=== PATIENT | male | born 1940 | race Caucasian/White ===

== ENCOUNTER → 2021-07-06 08:28 | Outpatient (BNVA) | payer OTHER, SELFPAY | PROVIDERS: Visit Provider Thoracic Surgery (Cardiothoracic Vascular Surgery) | DX: L89.302 Pressure ulcer of unspecified buttock, stage 2 (principal) | CPT/HCPCS: 97597; 99203; 99213 ==

== ENCOUNTER → 2021-07-13 09:02 | Outpatient (BNVA) | payer OTHER, SELFPAY | PROVIDERS: Visit Provider Thoracic Surgery (Cardiothoracic Vascular Surgery) | DX: Z09 Encounter for follow-up examination after completed treatment for conditions other than malignant neoplasm (principal) | CPT/HCPCS: 99212 ==

== ENCOUNTER 2021-08-16 20:00 | Outpatient (CLI) | payer OTHER, SELFPAY | END 2021-08-16 20:01 | disposition home or self-care (01) | LOC: SLEEP 08-17 08:34 | PROVIDERS: Visit Provider Family Medicine | DX: G47.33 Obstructive sleep apnea (adult) (pediatric) (principal) | CPT/HCPCS: 95811 ==

== ENCOUNTER 2022-01-17 11:54 | Outpatient (CLI) | payer MEDICARE, SELFPAY ==
[2022-01-17 13:37] LABS: PSA Screen - Urology 6.31 ng/mL (0-4)
== END 2022-01-17 11:55 | disposition home or self-care (01) ==
LOC: RAD 11:58
PROVIDERS: PCP Family Medicine; Visit Provider Urology
DX: Z12.5 Encounter for screening for malignant neoplasm of prostate (principal)
CPT/HCPCS: G0103

== ENCOUNTER → 2022-01-24 13:27 | Outpatient (BNVA) | payer MEDICARE, SELFPAY | PROVIDERS: PCP Family Medicine; Visit Provider Urology | DX: N40.1 Benign prostatic hyperplasia with lower urinary tract symptoms (principal); R97.20 Elevated prostate specific antigen [PSA]; I10 Essential (primary) hypertension; R35.89 Other polyuria | CPT/HCPCS: 51741; 51798; 52000; 99203 ==

== ENCOUNTER 2022-07-06 07:33 | Outpatient (CLI) | payer MEDICARE, SELFPAY ==
--- NOTE | 2022-07-06 08:00 | USCV_ITS ---
LewisIan robledo Age: 81 Gender: M : 1940 Exam Date: 07/06/2022 07:54 Ordering Phys: Isiah Perry MD ([email or web address]) Technologist: Ruslan Candelario Exam Location: [facility] – [place] Indication: CP, SOB BP: 160 / 90 HR: 89 Rhythm: Atrial fibrillation Technical Quality: Adequate MEASUREMENTS (Male / Female) Normal Values 2D ECHO LVOT Diameter 2.0 cm LV Ejection Fraction MOD 2C 51.8 % LV Ejection Fraction 2C AL 52.1 % LA Diameter 5.5 cm LA Width 5.0 cm LA Height 6.6 cm RA Width 4.7 cm RA Height 6.3 cm Aorta at Sinotubular Diameter 3.6 cm IVC Diameter 2.0 cm M-MODE Aortic Annulus Diameter 3.6 cm LA Ao Ratio MM 1.6 MV E Point Septal Separation 1.3 cm DOPPLER AV Peak Velocity 101.3 cm/s LVOT Peak Velocity 63.0 cm/s AV Area Cont Eq vti 1.9 cm squared AV Area Cont Eq pk 2.0 cm squared MV Peak Velocity 84.0 cm/s MV Area PHT 5.8 cm squared MV E' Velocity 38.0 cm/s Mitral E to MV E' Ratio 5.1 Mitral E to LV E' Lateral Ratio 5.7 Mitral E to LV E' Septal Ratio 4.6 TR Peak Velocity 265.8 cm/s TR Peak Gradient 28.3 mmHg TR Mean Velocity 204.2 cm/s TR Mean Gradient 18.4 mmHg TR Velocity Time Integral 55.4 cm Right Atrial Pressure 3.0 mmHg Pulmonary Artery Systolic Pressu 31.3 mmHg PV Peak Velocity 92.0 cm/s RV Acceleration Time 0.1 s RV Ejection Time 0.3 s RV AcT/ET 0.5 FINDINGS Left Ventricle Normal left ventricular cavity size. Grossly normal left ventricular systolic function. Study is inadequate for estimation of regional wall motion abnormality. Right Ventricle Normal right ventricular size and systolic function. Right Atrium Normal right atrial size. Left Atrium Mildly increased left atrial size. Mitral Valve Structurally normal mitral valve. No mitral valve stenosis. Trace mitral valve regurgitation. Aortic Valve Aortic valve not well visualized. No aortic valve stenosis. No aortic valve regurgitation. Tricuspid Valve Structurally normal tricuspid valve. Trace tricuspid valve regurgitation. Pulmonic Valve Pulmonic valve not well visualized. Pericardium No pericardial effusion. Aorta Normal size aortic root and dilated proximal ascending aorta measuring 4.2 cm. IVC Inferior vena cava not visualized. CONCLUSIONS 1. This is a technically difficult study. 2. Normal left ventricular cavity size. Grossly normal left ventricular systolic function. Study is inadequate for estimation of regional wall motion abnormality. 3. Dilated proximal ascending aorta measuring 4.2 cm. 4. No prior similar studies to compare. Lynsey Recio MD (Electronically Signed) Final Date: 08 Jul 2022 14:53 S
== END 2022-07-06 07:34 | disposition home or self-care (01) ==
PROVIDERS: PCP Family Medicine; Visit Provider Internal Medicine Cardiovascular Disease
DX: R07.9 Chest pain, unspecified (principal); R06.02 Shortness of breath; I10 Essential (primary) hypertension; R53.83 Other fatigue
CPT/HCPCS: 93306

== ENCOUNTER 2023-07-13 08:48 | Outpatient (CLI) | payer OTHER, SELFPAY ==
--- NOTE | 2023-07-13 09:05 | US_ITS ---
WS: [id number] ULTRASOUND ABDOMEN LIMITED CLINICAL INFORMATION: ELEVATED LIVER ENZYMES COMPARISON: None. FINDINGS: Very limited study due to body habitus and bowel gas Liver Size: Enlarged Craniocaudal length: 17.8 cm. Echogenicity: Coarse Surface nodularity: None. Mass (size and location): Multiple small simple cysts visualized Largest cyst measures 2.5 x 3.1 x 2.8 cm Bile ducts Intrahepatic ducts: Normal. Common bile duct diameter: 0.4 cm. Gallbladder Normal. Gallstones: None. Gallbladder sludge: None. Gallbladder wall thickening: None. Pericholecystic fluid: None. Sonographic Oneal sign: Absent. Pancreas Not well visualized Right kidney: Normal. Hydronephrosis: None. Size: 13.0 cm x 6.1 cm x 4.6 cm. Abdominal aorta and IVC Visualized portions are normal. Ascites: None. US/US abdomen limited [id number] IMPRESSION: Very Limited study due to body habitus and bowel gas 1. Pancreas not well seen. 2. Hepatomegaly with coarse hepatic echogenicity and multiple small cysts. 3. Normal gallbladder. 4. Hydronephrosis in the RIGHT kidney. 5. Advanced aortic atheromatous disease. 6. No ascites.
== END 2023-07-13 08:49 | disposition home or self-care (01) ==
LOC: RAD 08:48
PROVIDERS: PCP Family Medicine; Visit Provider Family Medicine
DX: I70.0 Atherosclerosis of aorta (principal); R74.01 Elevation of levels of liver transaminase levels; N40.0 Benign prostatic hyperplasia without lower urinary tract symptoms; I10 Essential (primary) hypertension; E03.9 Hypothyroidism, unspecified; K58.9 Irritable bowel syndrome, unspecified; G47.33 Obstructive sleep apnea (adult) (pediatric); R73.03 Prediabetes; L89.309 Pressure ulcer of unspecified buttock, unspecified stage; M54.30 Sciatica, unspecified side; I48.91 Unspecified atrial fibrillation
CPT/HCPCS: 76705

== ENCOUNTER 2023-12-04 07:56 | Outpatient (CLI) | payer OTHER, SELFPAY ==
--- NOTE | 2023-12-04 08:02 | CT_ITS ---
WS: [id number] CT FACIAL BONES TECHNIQUE: Noncontrast facial bones with coronal and sagittal reformatted images. CLINICAL INFORMATION: FRONTAL HEADACHE COMPARISON: None. DLP: 669.[address] scans at [facility] use at least one of these dose optimization techniques: automated e xposure control; mA and/or kV adjustment per patient size (includes targeted exams where dose is matc hed to clinical indication); or iterative reconstruction. FINDINGS: Minimal nasal septal deviation. Small retention cyst or polyp in the LEFT maxillary sinus measuring 1 .3 x 1.3 cm. Small disc osteophyte protrusions C2-C3 and C3-C4. Mastoid air cells are well aerated. Mild narrowing of the ostiomeatal units bilaterally which remain patent. Mucosal thickening in the et hmoid air cells. Frontal sinuses are well aerated. Mucosal thickening frontoethmoidal recesses. 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 This can be followed up with head CT. CT/CT facial bones wo con* [id number] IMPRESSION: 1. Minimal LEFT to RIGHT nasal septal deviation. 2. Small retention cyst or polyp LEFT maxillary sinus measuring 1.3 x 1.3 cm. 3. Paranasal sinuses are otherwise well aerated with mild mucosal thickening i n the ethmoid air cells and frontoethmoidal recesses. 4. Ostiomeatal units demonstrate mild narrowing but are patent. 5. Small disc osteophyte protrusions at the upper cervical spine at C2-C3 and C3-C4.
== END 2023-12-04 07:57 | disposition home or self-care (01) ==
LOC: RAD 07:58
PROVIDERS: PCP Family Medicine; Visit Provider Family Medicine
DX: R51.9 Headache, unspecified (principal); J34.2 Deviated nasal septum; J34.1 Cyst and mucocele of nose and nasal sinus
CPT/HCPCS: 70486

== ENCOUNTER 2023-12-26 11:35 | Outpatient (CLI) | payer OTHER, SELFPAY ==
--- NOTE | 2023-12-26 11:38 | USCV_ITS ---
Ian Lewis Age: 82 Gender: M : 1940 Exam Date: 12/26/2023 12:11 Ordering Phys: Mary Reid MD Technologist: CT Exam Location: [facility] – [place] Indication: BP: 158 / 74 HR: 73 Rhythm: Sinus Technical Quality: Technically difficult study MEASUREMENTS (Male / Female) Normal Values 2D ECHO LVOT Diameter 2.2 cm LV Ejection Fraction MOD 4C 51.4 % LV Ejection Fraction MOD 2C 42.7 % LV Ejection Fraction 2C AL 43.8 % LA Diameter 6.2 cm RA Systolic Volume 4C AL 88.0 ml RA Systolic Volume 4C MOD 84.3 ml LA Sys Volume AL 196.3 cm cubed LA Sys Volume Index AL 72.2 cm cubed/m squared Aorta at Sinotubular Diameter 3.2 cm M-MODE LA Ao Ratio MM 1.6 AV Cusp Separation MM 2.2 cm DOPPLER AV Peak Velocity 105.0 cm/s LVOT Peak Velocity 75.0 cm/s AV Area Cont Eq vti 3.1 cm squared AV Area Cont Eq pk 2.7 cm squared MV Peak Velocity 94.0 cm/s MV Area PHT 3.3 cm squared Mitral E to A Ratio 2.3 TV Peak Velocity 215.0 cm/s TR Peak Velocity 221.0 cm/s TR Peak Gradient 19.5 mmHg TV Peak E Velocity 70.0 cm/s Right Atrial Pressure 3.0 mmHg Pulmonary Artery Systolic Pressu 22.5 mmHg PV Peak Velocity 92.0 cm/s FINDINGS Left Ventricle Moderate left ventricular hypertrophy. Normal left ventricular size and systolic function, EF of. 50 to 55%. Mild diffuse hypokinesia of the septum and the anteroseptal segments. Right Ventricle The right ventricle is normal in size and function. Right Atrium The right atrium is normal in size. Left Atrium Moderately increased left atrial size. Mitral Valve No gross abnormalities noted Aortic Valve Minimally thickened Tricuspid Valve No gross abnormalities noted Pulmonic Valve [id number] pulmonary valve regurgitation. Pericardium Normal pericardium without effusion. Aorta Normal ascending aorta dimension. IVC The inferior vena cava appears normal. CONCLUSIONS Moderate left ventricular hypertrophy. Normal left ventricular size and systolic function, EF of. 50 to 55%. Mild diffuse hypokinesia of the septum and the anteroseptal segments. Moderately increased left atrial size. Minimally thickened aortic valve. [id number] pulmonary valve regurgitation. Estimated pulmonary artery peak systolic pressure 23 mmHg PJN There is no pericardial effusion. No similar previous studies are available for comparison Dr Katty Nazario MD [facility] (Electronically Signed) Final Date: 28 December 2023 15:46 S
== END 2023-12-26 11:36 | disposition home or self-care (01) ==
LOC: RAD 11:35
PROVIDERS: PCP Family Medicine; Visit Provider Family Medicine
DX: I37.1 Nonrheumatic pulmonary valve insufficiency (principal); I51.7 Cardiomegaly
CPT/HCPCS: 93306

== ENCOUNTER 2023-12-31 09:35 | Emergency (ER) | payer OTHER, SELFPAY ==
[2023-12-31] VITALS (26 sets, daily range): BP systolic 136–163; BP diastolic 75–116; PULSE 92–102; RESP 18–20; TEMP 37.1; O2SAT 86–98; BMI 38.2
--- NOTE | 2023-12-31 09:55 | ECG_ITS ---
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 Measurements Intervals [place] Rate: 98 P: 0 [place]: 0 QRS: -38 QRSD: 100 T: 32 QT: 371 QTc: 475 Interpretive Statements ATRIAL FIBRILLATION LEFT AXIS DEVIATION [QRS AXIS < -30] NONSPECIFIC ST & T-WAVE ABNORMALITY No previous ECG available for comparison Electronically Signed On 12-31-2023 19:29:16 CHARTERED WEALTH MANAGER by Katty Nazario M.D. [email or web address]
--- NOTE | 2023-12-31 09:57 | XR_ITS ---
WS: [id number] Exam: XR chest 1V portable [id number] Date/Time of Exam: 12/31/2023 10:01 AM Reason For Exam: sob Comparison 12/31/2023. Lungs are fully inflated and clear. Normal cardiomediastinal silhouette. No pleural effusions. Spondy losis of the T-spine. XR/XR chest 1V portable [id number] IMPRESSION: 1. No acute process noted.
--- NOTE | 2023-12-31 11:07 | W.ED.SOB ---
HPI - SOB/Dyspnea General: Chief Complaint: Shortness of Breath/Dyspnea Stated Complaint: sob, cough Time Seen by Provider: 12/31/23 10:57 History of Present Illness: HPI Narrative: 83-year-old man with a history of atrial fibrillation on Eliquis, hypothyroidism, hypertension and BPH who presents to the emergency room with congestion and cough. This been going on for few days now. He has been slightly more short of breath than usual. He had pneumonia recently. He called the [place] and they told him to go to the emergency room. No known fevers. No chest pain other than he has some pain in his ribs when he coughs. No altered mental status. No oxygen requirement. No abdominal pain. No nausea or vomiting. Related Data Home Medications Medication Instructions Recorded Confirmed apixaban 5 mg tablet (Eliquis) 5 mg PO BID 01/24/22 12/31/23 ascorbic acid (vitamin C) 500 mg 500 mg PO DAILY 01/24/22 12/31/23 capsule levothyroxine 50 mcg capsule 50 mcg PO DAILY 01/24/22 12/31/23 multivitamin 1 tab PO DAILY 01/24/22 12/31/23 omega 6-rry-avn-fish oil 100 1 cap PO DAILY 01/24/22 12/31/23 mg-160 mg-1,000 mg capsule (Fish Oil) tamsulosin 0.4 mg capsule 0.4 mg PO BID 01/24/22 12/31/23 zinc acetate 50 mg (zinc) capsule 50 mg PO DAILY 01/24/22 12/31/23 (Galzin) potassium gluconate 595 mg (99 mg) 595 mg PO DAILY 05/31/22 12/31/23 tablet cholecalciferol (vitamin D3) 10 10 mcg PO DAILY 08/29/23 12/31/23 mcg (400 unit) capsule losartan 100 0.5 tab PO DAILY 12/31/23 12/31/23 mg-hydrochlorothiazide 12.5 mg tablet Previous Rx's Medication Instructions Recorded azithromycin 250 mg tablet See Rx Instructions PO .COMPLEX #6 12/31/23 (Zithromax Z-Eliud) tabs benzonatate 200 mg capsule 200 mg PO TID PRN cough #30 caps 12/31/23 dexamethasone 6 mg tablet 6 mg PO DAILY 5 days #5 tabs 12/31/23 Allergies Allergy/AdvReac Type Severity Reaction Status Date / Time No Known Allergies Allergy Verified 10/03/23 11:43 Review of Systems Narrative: Constitutional symptoms: Negative except as documented in HPI. Skin symptoms: Negative except as documented in HPI. Eye symptoms: Negative except as documented in HPI. ENMT symptoms: Negative except as documented in HPI. Respiratory symptoms: Negative except as documented in HPI. Cardiovascular symptoms: Negative except as documented in HPI. Gastrointestinal symptoms: Negative except as documented in HPI. Genitourinary symptoms: Negative except as documented in HPI. Musculoskeletal symptoms: Negative except as documented in HPI. Neurologic symptoms: Negative except as documented in HPI. Psychiatric symptoms: Negative except as documented in HPI. Endocrine symptoms: Negative except as documented in HPI. PFSH ED PFSH: Medical History Mild ascending aorta dilatation Anticoagulation adequate with anticoagulant therapy Chest pain SOB (shortness of breath) Diverticulitis IBS (irritable bowel syndrome) Sleep apnea Bed sore on buttock History of erectile dysfunction Hypothyroid Hypertension A-fib Elevated PSA BPH loc w urin obs/LUTS Surgical History History of vasectomy History of appendectomy History of shoulder surgery History of hip replacement History of knee replacement Family History Mother , at age 83 CAD (coronary artery disease) Father , at age 67 Cancer Lung Social History Smoking and tobacco/nicotine status: former use of tobacco/nicotine Alcohol intake: never Adopted: No Household members: spouse Marital status: Current occupational status: retired Physical Exam Narrative: EXAM NARRATIVE: General: Alert, no acute distress. Skin: Warm, dry. Head: Normocephalic, atraumatic. Neck: Supple, trachea midline. Eye: Extraocular movements are intact. Ears, nose, mouth and throat: mucosa moist. Cardiovascular: Regular, Normal peripheral perfusion. Respiratory: Lungs are clear to auscultation, respirations are non-labored, breath sounds are equal, Symmetrical chest wall expansion. Gastrointestinal: Soft, Nontender, Non distended Musculoskeletal: Normal ROM, no deformity. Neurological: Alert and oriented, No focal neurological deficit observed. Psychiatric: Cooperative, appropriate mood & affect. Course Vital Signs: Vital signs: Vital Signs Temperature 98.8 F 12/31/23 10:00 Pulse Rate 102 H 12/31/23 10:00 Respiratory Rate 18 12/31/23 11:14 Blood Pressure 147/103 12/31/23 12:00 Pulse Oximetry 93 12/31/23 12:30 Oxygen Delivery Me thod Room Air 12/31/23 11:14 MDM - SOB/Dyspnea Medical Decision Making Differential diagnosis for patient with shortness of breath includes but is not limited to and based on the above HPI, review of systems and physical exam: Pneumonia. Bronchitis. Asthma or COPD with acute exacerbation. Acute coronary syndrome / [place]. Pulmonary embolism. Anxiety. Congestive heart failure. Viral infections including influenza and Covid-19. Atrial fibrillation. Anxiety. Pleural effusion. Pneumothorax. Orders placed to evaluate differential diagnosis based on the above differential, HPI and physical exam EKG: Time 9:55 AM. Rate 98. Atrial fibrillation with controlled rate, No ST-T changes, no ectopy, This was reviewed and interpreted by the ER physician at 10 AM. Repeat EKG: Time 1230. Rate 89. Atrial fibrillation with controlled rate, No ST-T changes, no ectopy, This was reviewed and interpreted by myself the ER physician at 1235. No changes from EKG done previously today in the emergency room. Chest x-ray: No acute process. No infiltrate. No pneumothorax. This was reviewed and interpreted by myself the emergency room physician. I also reviewed the radiology report. Lab Review: Laboratory results were reviewed and interpreted by myself the emergency room physician. No leukocytosis. No anemia. Mild thrombocytopenia. I reviewed the patient's medical record. Reexamination: Patient remained stable. No increased work of breathing. No altered mental status. No focal motor deficits. Assessment and plan: Upper respiratory infection - Discharged home - Discussed findings and plan with patient. Answered any questions. - All laboratory values were reviewed and interpreted personally by myself, the ER physician - All imaging was reviewed and interpreted personally by myself, the ER physician. - Evaluation and treatment of this problem were appropriate in the emergency setting Lab Data 12/31/23 11:06 12/31/23 11:06 Labs/Radiology: Radiology Impressions Chest X-Ray 12/31/23 09:57 IMPRESSION: 1. No acute process noted. Laboratory Results WBC 9.26 10^3/uL (3.29-11.43) 12/31/23 11:06 RBC 5.16 10^6/uL (3.85-5.65) 12/31/23 11:06 Hgb 16.70 g/dL (11.27-16.99) 12/31/23 11:06 Hct 49.0 % (37-53) 12/31/23 11:06 MCV 95.0 fl (82-101) 12/31/23 11:06 MCH 32.4 pg (27-33) 12/31/23 11:06 MCHC 34.1 g/dL (30-55) 12/31/23 11:06 RDW 13.8 % (12.1-15.1) 12/31/23 11:06 Plt Count 150 10^3/cmm (157-399) L 12/31/23 11:06 MPV 10.2 fL (7.4-10.4) 12/31/23 11:06 Neut % (Auto) 64.1 % 12/31/23 11:06 Lymph % (Auto) 17.5 % 12/31/23 11:06 [place] % (Auto) 11.2 % 12/31/23 11:06 Eos % (Auto) 6.2 % 12/31/23 11:06 Baso % (Auto) 0.5 % 12/31/23 11:06 Neut # (Auto) 5.93 10^3/uL (1.8-7.7) 12/31/23 11:06 Lymph # (Auto) 1.6 10^3/uL (0.8-4.8) 12/31/23 11:06 [place] # (Auto) 1.0 10^3/uL (0.2-0.9) H 12/31/23 11:06 Eos # (Auto) 0.6 10^3/uL (0.0-0.8) 12/31/23 11:06 Baso # (Auto) 0.1 10^3/uL (0.0-0.1) 12/31/23 11:06 Nucleated RBC % (auto) 0 % 12/31/23 11:06 Nucleated RBCs # 0.0 /100WBC 12/31/23 11:06 Sodium 138 mmol/L (136-145) 12/31/23 11:06 Potassium 4.0 mmol/L (3.5-5.1) 12/31/23 11:06 Chloride 100 mmol/L (98-107) 12/31/23 11:06 Carbon Dioxide 27 mmol/L (22-29) 12/31/23 11:06 Anion Gap 15.0 (5-19) 12/31/23 11:06 BUN 12 mg/dL (8-23) 12/31/23 11:06 Creatinine 0.9 mg/dL (0.7-1.2) 12/31/23 11:06 GFR Calculation Not Reportable 12/31/23 11:06 Glucose 122 mg/dL (65-115) H 12/31/23 11:06 Calculated Osmolality 287 mOsm/kg (285-295) 12/31/23 11:06 Calcium 8.6 mg/dL (8.5-10.5) 12/31/23 11:06 Total Bilirubin 0.8 mg/dL (0.15-1.2) 12/31/23 11:06 AST 27 U/L (0-40) 12/31/23 11:06 ALT 29 U/L (0-41) 12/31/23 11:06 Alkaline Phosphatase 58 U/L (40-130) 12/31/23 11:06 Troponin T Baseline 27 ng/L (0-15) H 12/31/23 11:06 Troponin T 120 Minute 25.19 ng/L (0-15) H 12/31/23 12:16 Delta Troponin T -1.81 ABS# (0-10) L 12/31/23 12:16 Total Protein 7.3 g/dL (6.6-8.7) 12/31/23 11:06 Albumin 4.1 g/dL (3.5-5.2) 12/31/23 11:06 Globulin 3.2 g/dL (1.3-4.6) 12/31/23 11:06 Coronavirus (PCR) Negative (Negative) 12/31/23 11:06 Influenza A (PCR) Negative (Negative) 12/31/23 11:06 Influenza Type B (PCR) Negative (Negative) 12/31/23 11:06 RSV (PCR) Negative (Negative) 12/31/23 11:06 All radiology interpretation(s) finalized by discharge Discharge Plan Discharge Patient Disposition: Home Clinical Impression: Acute upper respiratory infection Condition: Stable Prescriptions: New benzonatate 200 mg capsule 200 mg PO TID PRN (Reason: cough) Qty: 30 0RF azithromycin [Zithromax Z-Eliud] 250 mg tablet See Rx Instructions .ROUTE .COMPLEX Qty: 6 0RF Rx Instructions: For 250 mg dose pack: take 500 mg today (day 1), then 250 mg for 4 days (days 2-5) dexamethasone 6 mg tablet 6 mg PO DAILY 5 Days Qty: 5 0RF No Action multivitamin Tablet 1 tab PO DAILY Galzin 50 mg (zinc) capsule 50 mg PO DAILY tamsulosin 0.4 mg capsule 0.4 mg PO BID levothyroxine 50 mcg capsule 50 mcg PO DAILY Fish Oil 100-160-1,000 mg capsule 1 cap PO DAILY Eliquis 5 mg tablet 5 mg PO BID ascorbic acid (vitamin C) 500 mg capsule 500 mg PO DAILY potassium gluconate 595 mg (99 mg) tablet 595 mg PO DAILY cholecalciferol (vitamin D3) 10 mcg (400 unit) capsule 10 mcg PO DAILY losartan-hydrochlorothiazide 100-12.5 mg tablet 0.5 tab PO DAILY Discharge Orders: Discharge ED (Routine); Ordered 12/31/23 Ordered By: Selena Arias Referrals: Alvin Orozco MD [Primary Care Provider] - Discharge Diet: Usual diet Discharge Activity: Increase activity as tolerated Patient Instructions: Upper Respiratory Infection (ED), Opioid Safety, Pain Management Activity Restrictions/Additional Instructions: Thank you for choosing [facility] for your healthcare needs today. Please realize this is an emergency room and that we are providing you with a medical screening exam and this may not be complete and all inclusive of all the testing and or work up that you may need to determine your ailment or severity of your illness. You have been screened and evaluated and felt safe for discharge. Health conditions do change or evolve sometimes and as such it is important that you follow up with your Primary Doctor to be re checked, 3-5 days is a general good time frame for follow up. You are always welcome to return to the ED for re assessment if your symptoms are worsening or you have new concerns Coding Level of Care Code ED Contracting Support Specialist for Allan Albarran
[2023-12-31 11:24] LABS: Basophils # 0.1 10^3/uL (0.0-0.1); Basophils % 0.5 %; Eosinophils # 0.6 10^3/uL (0.0-0.8); Eosinophils % 6.2 %; Lymphocytes # 1.6 10^3/uL (0.8-4.8); Lymphocytes % 17.5 %; Mean Corpuscular HGB Conc 34.1 g/dL (30-55); Mean Corpuscular Hemoglobin 32.4 pg (27-33); Mean Platelet Volume 10.2 fL (7.4-10.4); Monocytes % 11.2 %; Neutrophils # 5.93 10^3/uL (1.8-7.7); Neutrophils % 64.1 %; Nucleated Red Blood Cells % 0 %; Platelet Count 150 10^3/cmm (157-399); Red Blood Count 5.16 10^6/uL (3.85-5.65); Red Cell Distribution Width 13.8 % (12.1-15.1); White Blood Count 9.26 10^3/uL (3.29-11.43)
[2023-12-31 11:42] LABS: Troponin(5th) Baseline 27 ng/L (0-15)
[2023-12-31 12:02] LABS: Covid PCR NEGATIVE (Negative); Influenza A NEGATIVE (Negative); Influenza B NEGATIVE (Negative); Respiratory Syncytial Virus Ce NEGATIVE (Negative)
--- NOTE | 2023-12-31 12:29 | ECG_ITS ---
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1940 Requested By: Harini Peralta Order Number: [id number] Reading MD: LINDA CENTENO Measurements Intervals [place] Rate: 93 P: 0 SD: 0 QRS: -30 QRSD: 110 T: 35 QT: 404 QTc: 505 Interpretive Statements ATRIAL FIBRILLATION WITH ABERRANT CONDUCTION OR VENTRICULAR PREMATURE COMPLEXES BORDERLINE LEFT AXIS DEVIATION [QRS AXIS < -20] NONSPECIFIC ST & T-WAVE ABNORMALITY ABNORMAL RHYTHM ECG Compared to ECG 12/31/2023 09:55:58 Ventricular premature complex(es) now present Aberrant conduction of supraventricular beat(s) now present T-wave abnormality still present Electronically Signed On 01-02-2024 18:17:10 MACHINE MAINTENANCE TECHNICIAN by LINDA CENTENO [email or web address]
[2023-12-31 12:48] LABS: Troponin 5 2HR 25.19 ng/L (0-15)
[2023-12-31 13:02] LABS: Troponin 5 2HR Delta -1.81 ABS# (0-10)
[2023-12-31 13:30] LABS: Alanine Aminotransferase 29 U/L (0-41); Albumin Level 4.1 g/dL (3.5-5.2); Alkaline Phosphatase 58 U/L (40-130); Blood Urea Nitrogen 12 mg/dL (8-23); Calcium 8.6 mg/dL (8.5-10.5); Carbon Dioxide 27 mmol/L (22-29); Chloride 100 mmol/L (98-107); Creatinine Clr Calc Pharmacy 91.5563; Globulin 3.2 g/dL (1.3-4.6); Glucose 122 mg/dL (65-115); Osmolality Calculated 287 mOsm/kg (285-295); Sodium 138 mmol/L (136-145); Total Bilirubin 0.8 mg/dL (0.15-1.2); Total Protein 7.3 g/dL (6.6-8.7)
[2023-12-31 13:31] LABS: Aspartate Amino Transferase 27 U/L (0-40)
--- NOTE | 2023-12-31 13:56 | PC.NURSE ---
AT DC PT BP 163/116. VERIFIED WITH DR. NASH. DR. NASH GAVE VERBAL INSTRUCTION TO CONTINUE WITH DC
== END 2023-12-31 13:58 | disposition home or self-care (01) ==
PROVIDERS: Physician Assistant; Emergency Provider Emergency Medicine; PCP Family Medicine
DX: J06.9 Acute upper respiratory infection, unspecified (principal); Z11.52 Encounter for screening for COVID-19; Z79.01 Long term (current) use of anticoagulants; Z87.891 Personal history of nicotine dependence; I10 Essential (primary) hypertension
CPT/HCPCS: 0241U; 36415; 71045; 80053; 84484; 85025; 93005; 99285

== ENCOUNTER 2024-01-30 13:02 | Outpatient (CLI) | payer OTHER, SELFPAY ==
--- NOTE | 2024-01-30 13:05 | USCV_ITS ---
Ian Lewis Age: 83 Gender: M : 1940 Exam Date: 01/30/2024 13:19 Ordering Phys: Mary Reid MD Technologist: QUINTIN Exam Location: [facility] – [place] Indication: Stenosis Risk Factors: Previous Vascular Surgery: Right Brachial BP: / Left Brachial BP: / Right Left Velocity (cm/s) Spectral Plaque Velocity (cm/s) Spectral Plaque Syst/Diast Broadening Syst/Diast Broadening 48.40/ 13.80 Prox CCA 111.20/ 20.80 59.00/ 14.70 Mid CCA 78.00 / 14.60 53.60/ 16.70 Distal CCA 74.00 / 21.00 29.30/ 6.60 Prox ICA 82.80 / 21.00 46.30/ 15.00 Mid ICA 78.20 / 24.00 58.40/ 21.70 Distal ICA 90.30 / 21.00 72.90 ECA 46.10 1.10 ICA/CCA 1.20 Antegrade Vertebral Antegrade 41.00/ 13.00 cm/s 39.00/ 11.90 cm/s Tri Subclavian Tri 65.10 89.80 CONCLUSIONS Right ICA stenosis <50%. Mild atheromatous plaque right carotid bulb/ICA. Left ICA stenosis <50%. Mild atheromatous plaque left carotid bulb/ICA. Intimal thickening in the common carotid arteries and internal carotid arteries bilaterally. Normal antegrade Doppler flow noted in the right vertebral artery. Normal antegrade Doppler flow noted in the left vertebral artery. Lee No MD (Electronically Signed) Final Date: 30 January 2024 15:39 S
== END 2024-01-30 13:03 | disposition home or self-care (01) ==
LOC: RAD 13:03
PROVIDERS: PCP Family Medicine; Visit Provider Family Medicine
DX: I65.23 Occlusion and stenosis of bilateral carotid arteries (principal); R42 Dizziness and giddiness
CPT/HCPCS: 93880

== ENCOUNTER → 2024-03-19 16:05 | Outpatient (BNVA) | payer OTHER, MEDICARE, SELFPAY | PROVIDERS: PCP Family Medicine; Visit Provider Internal Medicine Cardiovascular Disease | DX: I48.91 Unspecified atrial fibrillation (principal); Z79.01 Long term (current) use of anticoagulants; I77.819 Aortic ectasia, unspecified site; E78.5 Hyperlipidemia, unspecified; I11.9 Hypertensive heart disease without heart failure; Z87.891 Personal history of nicotine dependence | CPT/HCPCS: 99214 ==

== ENCOUNTER → 2024-07-15 09:21 | Outpatient (BNVA) | payer MEDICARE, SELFPAY | PROVIDERS: PCP Family Medicine; Visit Provider Nurse Practitioner Family | DX: D18.01 Hemangioma of skin and subcutaneous tissue (principal); L82.1 Other seborrheic keratosis; L73.8 Other specified follicular disorders; L72.0 Epidermal cyst; L91.8 Other hypertrophic disorders of the skin; S80.811A Abrasion, right lower leg, initial encounter; X58.XXXA Exposure to other specified factors, initial encounter; L57.8 Other skin changes due to chronic exposure to nonionizing radiation; X32.XXXA Exposure to sunlight, initial encounter; L81.4 Other melanin hyperpigmentation; Z80.8 Family history of malignant neoplasm of other organs or systems; D48.5 Neoplasm of uncertain behavior of skin | CPT/HCPCS: 69100; 99203 ==

== ENCOUNTER → 2025-01-20 09:50 | Outpatient (BNVA) | payer MEDICARE, SELFPAY | PROVIDERS: PCP Family Medicine; Visit Provider Nurse Practitioner Family | DX: Z80.8 Family history of malignant neoplasm of other organs or systems (principal); L57.0 Actinic keratosis; L72.0 Epidermal cyst; L73.8 Other specified follicular disorders; L91.8 Other hypertrophic disorders of the skin; L82.1 Other seborrheic keratosis; D18.01 Hemangioma of skin and subcutaneous tissue | CPT/HCPCS: 17000; 99213 ==